=== PATIENT | female | born 1960 | race Caucasian/White ===

== ENCOUNTER 2022-11-03 09:16 | Outpatient (OUT) | payer OTHER, SELFPAY ==
[2022-11-03 09:35] LABS: Basophils Absolute Auto 0.1 10^3/uL (0.0-0.1); Basophils Percent Auto 1.4 % (0.2-2.0); Eosinophils Absolute Auto 0.4 10^3/uL (0.0-0.7); Hematocrit 37.6 % (36.0-48.0); Hemoglobin 12.6 g/dL (12.0-16.0); Lymphocytes Absolute Auto 2.1 10^3/uL (1.2-3.8); Lymphocytes Percent Auto 42.3 % (20.5-60.0); Mean Corpuscular HGB Conc 33.5 g/dL (29.9-35.2); Mean Corpuscular Volume 86.4 fL (81.0-99.0); Mean Platelet Volume 9.1 fL (9.5-13.5); Monocytes Absolute Auto 0.3 10^3/uL (0.3-0.8); Neutrophils Percent Auto 41.3 % (43.0-75.0); Platelet Count 276 10^3/uL (150-450); Red Blood Count 4.35 10^6/uL (4.20-5.40); Red Cell Distribution Width 13.4 % (11.0-15.0); White Blood Count 4.9 10^3/uL (4.0-11.0)
[2022-11-03 10:23] LABS: Alanine Aminotransferase 22 U/L (14-59); Albumin Globulin Ratio 0.9; Albumin Level 3.4 g/dL (3.4-5.0); Alkaline Phosphatase 86 U/L (46-116); Aspartate Amino Transferase 12 U/L (15-37); BUN Creatinine Ratio 18.5; Bilirubin Total 0.3 mg/dL (0.2-1.0); Calcium 8.8 mg/dL (8.5-10.1); Carbon Dioxide 25.9 mmol/L (21.0-32.0); Chloride 107 mmol/L (98-107); Chol HDL Ratio 3.3; Cholesterol 200 mg/dL (<=200); Estimated GFR (African America >60 (>=60); Estimated GFR (Non-African Ame >60 (>=60); Globulin 3.6 g/dL; Glucose 108 mg/dL (74-106); HDL Cholesterol 61 mg/dL (40-60); Potassium 3.9 mmol/L (3.5-5.1); Sodium 141 mmol/L (136-145); Thyroid Stimulating Hormone 1.877 uIU/mL (0.358-3.740); Triglycerides 170 mg/dL (<=150)
== END 2022-11-03 09:17 | disposition home or self-care (01) ==
LOC: LAB 09:16
PROVIDERS: PCP Family Medicine; Visit Provider Family Medicine
DX: Z00.00 Encounter for general adult medical examination without abnormal findings (principal)
CPT/HCPCS: 36415; 80053; 80061; 84443; 85025

== ENCOUNTER 2022-11-05 14:19 | Outpatient (OUT) | payer OTHER, SELFPAY ==
--- NOTE | 2022-11-05 14:22 | MM_ITS ---
Patient: PRASAD TANNER Exam Date: 11/05/2022 : 1960 Gender:F Ordering : DR Holly Saleh M.D. Admission #: [id number] Family : DR Valdezeloy Hilton . Order #: [id number] CLICK HERE TO VIEW EXAM RADIOLOGY REPORT PROCEDURE: MM TOMOSYNTHESIS SCREENING BI COMPARISON: MG MAMM SCREEN 3D LAUREN CAD, 10/26/2020. MG MAMM LAUREN SCRN W CAD DIG, 12/17/2014. MG MAMM LAUREN SCRN W CAD DIG, 11/04/2012. INDICATIONS: Screening mammogram Z12.31 Calculator Name NCI Breast Cancer Risk Assessment Tool 5 Year Breast Cancer Risk 1.30% Lifetime Breast Cancer Risk 6.60% Personal Breast Cancer No Personal Ovarian Cancer No Treatments None Family Cancers Mother with neck cancer at age 55. LOCATION: [facility] BREAST COMPOSITION: Almost entirely fatty. FINDINGS: DIAGNOSTIC CATEGORY 2--BENIGN FINDING: RIGHT BREAST: No significant suspicious finding. Scarring compatible with breast reduction surgery 2021. LEFT BREAST: No significant suspicious finding. Scarring compatible with breast reduction surgery 2021. RECOMMENDATIONS: ROUTINE MAMMOGRAM AND CLINICAL EVALUATION IN 12 MONTHS. PLEASE NOTE: A NORMAL MAMMOGRAM DOES NOT EXCLUDE THE POSSIBILITY OF BREAST CANCER. A CLINICALLY SUSPICIOUS PALPABLE LUMP SHOULD BE BIOPSIED. Dictated by: Rio Ramos M.D. on 11/06/2022 at 12:43 Approved by: Rio Ramos M.D. on 11/06/2022 at 12:45
== END 2022-11-05 14:20 | disposition home or self-care (01) ==
LOC: MAMMO 14:19
PROVIDERS: PCP Family Medicine; Visit Provider Family Medicine
DX: Z12.31 Encounter for screening mammogram for malignant neoplasm of breast (principal); Z80.8 Family history of malignant neoplasm of other organs or systems
CPT/HCPCS: 77063; 77067

== ENCOUNTER 2023-12-23 12:40 | Outpatient (OUT) | payer OTHER, SELFPAY ==
--- NOTE | 2023-12-23 12:47 | MM_ITS ---
Patient Name: PRASAD TANNER MR#: [id number] : 1960 Exam Date: 12/23/2023 Ordering Doctor: DR Holly Saleh M.D. RADIOLOGY REPORT PROCEDURE: MM TOMOSYNTHESIS SCREENING BI COMPARISON: MM TOMOSYNTHESIS SCREENING BI, 11/05/2022. MG MAMM SCREEN 3D LAUREN CAD, 10/26/2020. MG MAMM LAUREN SCRN W CAD DIG, 12/17/2014. MG MAMM LAUREN SCRN W CAD DIG, 11/04/2012. INDICATIONS: Screening Calculator Name NCI Breast Cancer Risk Assessment Tool 5 Year Breast Cancer Risk 1.30% Lifetime Breast Cancer Risk 6.40% Personal Breast Cancer No Personal Ovarian Cancer No Treatments None Family Cancers Mother with neck cancer at age 55. LOCATION: [facility] BREAST COMPOSITION: The breasts are almost entirely fatty. FINDINGS: DIAGNOSTIC CATEGORY 1--NEGATIVE. RIGHT BREAST: No significant suspicious finding. No significant change has occurred. LEFT BREAST: No significant suspicious finding. No significant change has occurred. RECOMMENDATIONS: ROUTINE MAMMOGRAM AND CLINICAL EVALUATION IN 12 MONTHS. PLEASE NOTE: A NORMAL MAMMOGRAM DOES NOT EXCLUDE THE POSSIBILITY OF BREAST CANCER. A CLINICALLY SUSPICIOUS PALPABLE LUMP SHOULD BE BIOPSIED. Dictated by: Rio Ramos M.D. on 12/23/2023 at 16:34 Approved by: Rio Ramos M.D. on 12/23/2023 at 16:41
--- NOTE | 2023-12-23 12:47 | XR_ITS ---
[address] [address] Patient Name: PRASAD TANNER MRN: [id number] date: 1960 Sex: F Assigned Patient Location: [facility] Current Patient Location: [facility] Accession/Order Number: [id number] Exam Date: 12/23/2023 13:00 Report Date: 12/23/2023 13:26 At the request of: SYLVESTER ALBERTS Procedure: XR DEXA axial skeleton EXAMINATION: XR DEXA axial skeleton HISTORY: Menopause Present COMPARISON: DEXA bone densitometry 10/26/2020 TECHNIQUE: Dual-energy X-ray absorptiometry (DXA) was performed. FINDINGS: SPINE ANALYSIS: Average bone mineral density is 1.112 g/cm2. T-score (standard deviation relative to young adult mean): -0.6 . +1.4% change since prior study. HIP ANALYSIS: Lowest bone mineral density is within the left femoral neck, 0.753 g/cm2. T-score (standard deviation relative to young adult mean): -2.0 . -3.6% change since prior study. XR/XR DEXA axial skeleton IMPRESSION: World Health Organization Classification: Osteopenia - Moderate Fracture Risk FRAX: Cannot be calculated. Pharmacologic treatment recommendations * No uniform recommendation applies to all patients. Management plans must be individualized. * Consider initiating pharmacologic treatment in postmenopausal women and men >= 50 years of age who have the following: Primary fracture prevention: * T-score <= - 2.5 at the femoral neck, total hip, lumbar spine, 33% radius (some uncertainty with existing data) by DXA. * Low bone mass (osteopenia: T-score between - 1.0 and - 2.5) at the femoral neck or total hip by DXA with a 10-year hip fracture risk >= 3% or a 10-year major osteoporosis-related fracture risk >= 20% (i.e., clinical vertebral, hip, forearm, or proximal humerus) based on the [place]-adapted FRAXregistered model. Secondary fracture prevention: * Fracture of the hip or vertebra regardless of BMD [4, 5]. * Fracture of proximal humerus, pelvis, or distal forearm in persons with low bone mass (osteopenia: T-score between - 1.0 and - 2.5). The decision to treat should be individualized in persons with a fracture of the proximal humerus, pelvis, or distal forearm who do not have osteopenia or low BMD [12, 13]. Vicente MS, Suha SL, Homer KL, Herson EM, Angelo KG, AJ, Liz ES. The clinician's guide to prevention and treatment of osteoporosis. Osteoporos Int. 2021;33(10):6556-9159. doi: 10.1007/k86484-367-71168-p. Epub 2021Jul 20. Erratum in: Osteoporos Int. 2021Oct 19;: PMID: [id number]; PMCID: [id number]. Electronically authenticated by: SUSAN CONNOR Date: 12/23/2023 13:26
== END 2023-12-23 12:41 | disposition home or self-care (01) ==
LOC: MAMMO 12:43
PROVIDERS: PCP Family Medicine; Visit Provider Family Medicine
DX: Z12.31 Encounter for screening mammogram for malignant neoplasm of breast (principal); Z78.0 Asymptomatic menopausal state; Z80.8 Family history of malignant neoplasm of other organs or systems; M85.80 Other specified disorders of bone density and structure, unspecified site
CPT/HCPCS: 77063; 77067; 77080